=== PATIENT | female | born 1995 | race American Indian/Alaskan Native ===

== ENCOUNTER 2016-04-13 09:23 | Emergency (ER) | payer SELFPAY ==
[2016-04-13] MEDS ORDERED: LIDOCAINE PATCH 5% TOP STA (11:58)
[2016-04-13] MEDS ORDERED: SULFAMETH/TRIMETH DS 800/160 MG TABLET PO STA (11:58)
[2016-04-13] MEDS ORDERED: IBUPROFEN 400 MG TABLET PO STA (11:58)
[2016-04-13] MEDS ORDERED: IBUPROFEN 400 MG TABLET PO ONE (12:01)
[2016-04-13] MEDS ORDERED: SULFAMETH/TRIMETH DS 800/160 MG TABLET PO ONE (12:02)
[2016-04-13] MEDS ORDERED: LIDOCAINE PATCH 5% TOP ONE (12:02)
== END 2016-04-13 13:53 | disposition home or self-care (01) ==
DX: M54.5 Low back pain (principal); F17.200 Nicotine dependence, unspecified, uncomplicated; K59.00 Constipation, unspecified; N30.01 Acute cystitis with hematuria
CPT/HCPCS: 81001; 81025; 87077; 87086; 87181; 99283; A9270